=== PATIENT | female | born 1995 | race Caucasian/White ===

== ENCOUNTER 2019-05-22 20:05 | Emergency (ER) | payer OTHER ==
[2019-05-22 20:12] VITALS: BP 130/79
[2019-05-22] MEDS ORDERED: HYDROcod/ACETAM 5/325 MG TABLET PO STA (20:56)
--- NOTE | 2019-05-22 21:00 | ED Physician Documentation ---
History of Present Illness - Stated complaint Stated Complaint: UPPER JAW PX - Chief complaint Chief Complaint: General - History obtained from History obtained from: Patient - History of Present Illness Timing: How many days ago (3-4) Pain level max: 7 Pain level now: 4 - Additonal information Additional information: 23-year-old female presents to the emergency department complaining of bilateral upper dental pain, she thinks that this may be her wisdom teeth. Has not had them removed. No fevers. She feels swelling in the area as well. Tylenol and motrin help. worse with palpation Review of Systems Constitutional: denies: Fever, Chills Throat: denies: Sore throat Cardiac: denies: Chest pain / pressure Respiratory: denies: Cough GI: denies: Vomiting, Diarrhea : denies: Now EGA Skin: denies: Rash Musculoskeletal: denies: Neck pain, Back pain Neurologic: denies: Headache PD PAST MEDICAL HISTORY - Past Medical History Past Medical History: No - Past Surgical History Past Surgical History: No - Present Medications Home Medications: Ambulatory Orders Medication Instructions Recorded Confirmed Hydrocodone/Acetaminophen 1 - 2 each PO Q6H PRN #14 tablet 05/22/19 [Hydrocodon-Acetaminophen 5-325] Ibuprofen [Motrin] 800 mg PO Q8H PRN #30 tablet 05/22/19 - Allergies Allergies/Adverse Reactions: Allergies Allergy/AdvReac Type Severity Reaction Status Date / Time No Known Drug Allergies Allergy Verified 05/22/19 20:11 - Living Situation Living Situation: reports: With family Living Arrangement: reports: At home - Social History Does the pt smoke?: No Does the pt have substance abuse?: No PD ED PE NORMAL - Vitals Vital signs reviewed: Yes - General General: Alert and oriented X 3, No acute distress - HEENT HEENT: Moist mucous membranes - Neck Neck: Supple, no meningeal sign - Cardiac Cardiac: RRR, Strong equal pulses - Respiratory Respiratory: No respiratory distress, Clear bilaterally - Derm Derm: Warm and dry - Neuro Neuro: Alert and oriented X 3 Results - Vitals Vitals: Vital Signs - 24 hr 05/22/19 20:07 Temperature 37 C Heart Rate 91 Respiratory 16 Rate Blood Pressure 130/79 O2 Saturation 100 Oxygen O2 Source Room air PD MEDICAL DECISION MAKING - ED course Complexity details: considered differential, d/w patient ED course: 23-year-old female presents to the emergency department for what appears to be erupting wisdom teeth. Will place on pain medication for home and follow-up with her dentist and an oral surgeon. Patient counseled regarding signs and symptoms for which I believe and urgent re-evaluation would be necessary. Patient with good understanding of and agreement to plan and is comfortable going home at this time This document was made in part using voice recognition software. While efforts are made to proofread this document, sound alike and grammatical errors may occur. Departure - Departure Disposition: 01 Home, Self Care Clinical Impression: Tooth eruption Condition: Good Instructions: Ke[place] Teeth Impacted, Ke[place] Teeth Follow-Up: your,dentist tomorrow [Other] Prescriptions: Hydrocodone/Acetaminophen [Hydrocodon-Acetaminophen 5-325] 1 - 2 each PO Q6H PRN #14 tablet PRN Reason: pain Ibuprofen [Motrin] 800 mg PO Q8H PRN #30 tablet PRN Reason: PAIN &/OR FEVER Comments: Your wisdom teeth appear to be erupting on exam. You need to follow-up with your doctor for further care. Return if you worsen. Follow-up with your dentist as you will need x-rays to determine if this is impacted or not. You may need to see an oral surgeon for removal. Do not drink alcohol or drive while on narcotic pain medicine. Note that many narcotic pain relievers also contain tylenol/acetaminophen. Please ensure that your total dose of acetaminophen from all sources does not exceed 3 grams (3000mg) per day. You may constipated on this medication, take a stool softener such as "Colace" twice a day while you are on it. Also recommend a [id number] laxative such as senna or MiraLAX any day that you do not have a bowel movement. If you received narcotic pain medication in the emergency department, do not drive or operate machinery for the next 24 hours. Discharge Date/Time: 05/22/19 21:15
== END 2019-05-22 21:15 | disposition home or self-care (01) ==
LOC: ED 20:05
DX: K00.6 Disturbances in tooth eruption (principal)
CPT/HCPCS: 99282; 99284; A9270

== ENCOUNTER 2020-06-30 21:21 | Emergency (ER) | payer OTHER ==
[2020-06-30 21:41] VITALS: BP 117/76
[2020-06-30 21:44] LABS: BILIRUBIN,URINE NEGATIVE (NEGATIVE); GLUCOSE, URINE (UA) NEGATIVE (NEGATIVE); KETONES,URINE (UA) NEGATIVE (NEGATIVE); LEUKOCYTE ESTERASE, URINE NEGATIVE (NEGATIVE); NITRITE,URINE NEGATIVE (NEGATIVE); OCCULT BLOOD,URINE LARGE (NEGATIVE); PROTEIN,URINE NEGATIVE (NEGATIVE); UROBILINOGEN,URINE 0.2 (NORMAL) E.U./dL (NORMAL)
[2020-06-30 21:45] LABS: CLARITY,URINE CLEAR (CLEAR)
[2020-06-30 21:46] LABS: HCG UR QUAL NEGATIVE
[2020-06-30 21:53] LABS: BACTERIA,URINE Rare /HPF (None Seen); SQUAMOUS EPITHELIAL CELL,UR FEW Squamous (<= Few)
--- NOTE | 2020-06-30 22:17 | ED Physician Documentation ---
History of Present Illness - Stated complaint Stated Complaint: FEMALE - Chief complaint Chief Complaint: Abd Pain - History obtained from History obtained from: Patient - Additonal information Additional information: Is a 24-year-old female presents with a chief complaint of nausea. She reports she stopped smoking cigarettes 2 days ago and started vaping and she reports occasional nausea without vomiting. Denies headache, neck pain, fevers, chills, shortness of breath, dysuria hematuria flank pain abdominal pain or syncope denies any hearing or vision loss.Patient reports she is allergic to Zofran. She does have a follow-up appointment tomorrow with her PCP. Review of Systems Constitutional: reports: Reviewed and negative Eyes: reports: Reviewed and negative Ears: reports: Reviewed and negative Nose: reports: Reviewed and negative Throat: reports: Reviewed and negative Cardiac: reports: Reviewed and negative Respiratory: reports: Reviewed and negative GI: reports: Nausea : reports: Reviewed and negative Skin: reports: Reviewed and negative Musculoskeletal: reports: Reviewed and negative Neurologic: reports: Reviewed and negative Psychiatric: reports: Reviewed and negative Endocrine: reports: Reviewed and negative Immunocompromised: reports: Reviewed and negative PD PAST MEDICAL HISTORY - Past Medical History Past Medical History: No Cardiovascular: None Respiratory: None Neuro: None Endocrine/Autoimmune: None GI: 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 : None HEENT: None Psych: None Musculoskeletal: None Derm: None - Past Surgical History Past Surgical History: No - Present Medications Home Medications: Ambulatory Orders Medication Instructions Recorded Confirmed Hydrocodone/Acetaminophen 1 - 2 each PO Q6H PRN #14 tablet 05/22/19 [Hydrocodon-Acetaminophen 5-325] Ibuprofen [Motrin] 800 mg PO Q8H PRN #30 tablet 05/22/19 - Allergies Allergies/Adverse Reactions: Allergies Allergy/AdvReac Type Severity Reaction Status Date / Time ondansetron [From Zofran] AdvReac Unknown Verified 06/30/20 21:39 - Social History Does the pt smoke?: No Smoking Status: Never smoker Does the pt drink ETOH?: No Does the pt have substance abuse?: No - Immunizations Immunizations are current?: Yes - POLST Patient has POLST: No PD ED PE NORMAL - Vitals Vital signs reviewed: Yes - General General: Alert and oriented X 3, No acute distress, Well developed/nourished - HEENT HEENT: Atraumatic, PERRL, EOMI, Ears normal, Moist mucous membranes, Pharynx benign, Dentition benign - Neck Neck: Supple, no meningeal sign, No adenopathy, Thyroid normal, No JVD, No bruit - Cardiac Cardiac: RRR, No murmur, No gallop, No rub, Strong equal pulses - Respiratory Respiratory: No respiratory distress, Clear bilaterally - Abdomen Abdomen: Normal bowel sounds, Soft, Non tender, Non distended, No organomegaly - Female Female : Pt declined - Rectal Rectal: Pt declined - Back Back: No CVA TTP, No spinal TTP - Derm Derm: Normal color, Warm and dry, No rash - Extremities Extremities: No deformity, No tenderness to palpate, Normal ROM s pain, No edema, No calf tenderness / cord - Neuro Neuro: Alert and oriented X 3, report clerk 2-12 intact, No motor deficit, No sensory deficit, Normal speech - Psych Psych: Normal mood, Normal affect Results - Vitals Vitals: Vital Signs - 24 hr 06/30/20 21:37 Temperature 36.8 C Heart Rate 76 Respiratory 17 Rate Blood Pressure 117/76 O2 Saturation 98 Oxygen O2 Source Room air - Labs Labs: Laboratory Tests 06/30/20 21:40 Urine Color YELLOW Urine Clarity CLEAR Urine pH 7.0 Ur Specific [place] <=1.005 Urine Protein NEGATIVE Urine Glucose (UA) NEGATIVE Urine Ketones NEGATIVE Urine Occult Blood LARGE H Urine Nitrite NEGATIVE Urine Bilirubin NEGATIVE Urine Urobilinogen 0.2 (NORMAL) Ur Leukocyte Esterase NEGATIVE Urine RBC 11-25 H Urine WBC 0-3 Ur Squamous Epith Cells FEW Squamous Urine Bacteria Rare Ur Microscopic Review INDICATED Urine Culture Comments NOT INDICATED Urine HCG, Qual NEGATIVE PD MEDICAL DECISION MAKING - ED course Complexity details: other ED course: Patient with vague complaints of nausea that has now resolved. Urinalysis is positive for red blood cells with patient reports is currently menstruation.Did offer use of Zofran however the patient states that she is allergic. She is tolerated p.o. challenge in the emergency department she has good follow-up care with her primary care provider this week. Departure - Departure Disposition: 01 Home, Self Care Clinical Impression: Nausea Condition: Stable Instructions: ED Nausea Vomiting Follow-Up: your, doctor [Other] - Tomorrow Comments: please follow up with your primary care provider tomorrow.
== END 2020-06-30 22:33 | disposition home or self-care (01) ==
LOC: ED 21:21
DX: R11.0 Nausea (principal); F17.290 Nicotine dependence, other tobacco product, uncomplicated
CPT/HCPCS: 81001; 81003; 81025; 87086; 99282; 99283

== ENCOUNTER 2020-12-12 13:43 | Emergency (ER) | payer OTHER ==
--- NOTE | 2020-12-12 14:50 | ED Physician Documentation ---
History of Present Illness - Stated complaint Stated Complaint: NAUSEA/FATIGUE - Chief complaint Chief Complaint: Abd Pain - History obtained from History obtained from: Patient - History of Present Illness Timing: Today Pain level max: 0 Pain level now: 0 - Additonal information Additional information: Patient is a 25-year-old female who presents to the emergency department stating that she is concerned about possibly being . She is about 1 week late for her normal menses. She states that she feels like she has breast tenderness and nausea. No fevers. She states she took urine test but that she read that they can be false negatives. She is here requesting a blood test for . No abdominal pain. No fevers. No chills. No vaginal bleeding or discharge Review of Systems Constitutional: denies: Fever, Chills Respiratory: denies: Cough GI: reports: Nausea. 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 : None HEENT: None Psych: None Musculoskeletal: None Derm: None - Past Surgical History Past Surgical History: No - Present Medications Home Medications: Ambulatory Orders Medication Instructions Recorded Confirmed Promethazine [Phenergan] 25 mg PO Q6H PRN #10 tab 12/12/20 - Allergies Allergies/Adverse Reactions: Allergies Allergy/AdvReac Type Severity Reaction Status Date / Time ondansetron [From Zofran] AdvReac Unknown Verified 12/12/20 13:57 - Social History Does the pt smoke?: No Smoking Status: Former smoker Does the pt drink ETOH?: Yes Does the pt have substance abuse?: Yes Substance Use and Type: Marijuana - Immunizations Immunizations are current?: Yes - POLST Patient has POLST: No PD ED PE NORMAL - Vitals Vital signs reviewed: Yes - General General: Alert and oriented X 3, No acute distress - HEENT HEENT: Moist mucous membranes - Neck Neck: Supple, no meningeal sign - Cardiac Cardiac: RRR - Respiratory Respiratory: No respiratory distress, Clear bilaterally - Abdomen Abdomen: Soft - Derm Derm: Warm and dry - Neuro Neuro: Alert and oriented X 3 Results - Vitals Vitals: Vital Signs - 24 hr 12/12/20 13:50 Temperature 37.1 C Heart Rate 70 Respiratory 19 Rate Blood Pressure 129/78 O2 Saturation 100 Oxygen O2 Source Room air - Labs Labs: Laboratory Tests 12/12/20 14:40 HCG, Quant < 0.60 PD MEDICAL DECISION MAKING - ED course Complexity details: reviewed results, re-evaluated patient, considered differential, d/w patient ED course: test is negative. I will prescribe nausea medication for home. Patient is well-appearing, nontoxic. Afebrile. Possible early viral syndrome? Patient declines any further work-up at this time. Patient counseled regarding signs and symptoms for which I believe and urgent re-evaluation would be necessary. Patient with good understanding of and agreement to plan and is comfortable going home at this time This document was made in part using voice recognition software. While efforts are made to proofread this document, sound alike and grammatical errors may occur. Departure - Departure Disposition: 01 Home, Self Care Clinical Impression: Nausea Condition: Good Instructions: ED Nausea Vomiting Follow-Up: your,doctor in 1 week [Other] Prescriptions: Promethazine [Phenergan] 25 mg PO Q6H PRN #10 tab PRN Reason: Nausea / Vomiting Comments: Your test is negative. Follow-up with your doctor for further care. This may be the start of a viral syndrome. You can use the phenergan as needed for nausea and/or vomiting Discharge Date/Time: 12/12/20 15:23
[2020-12-12 15:21] VITALS: BP 129/78
== END 2020-12-12 15:23 | disposition home or self-care (01) ==
LOC: ED 13:43
DX: R11.0 Nausea (principal); R53.83 Other fatigue; Z32.02 Encounter for pregnancy test, result negative; Z87.891 Personal history of nicotine dependence
CPT/HCPCS: 36415; 84702; 99283

== ENCOUNTER 2021-03-16 12:23 | Emergency (ER) | payer OTHER ==
--- NOTE | 2021-03-16 12:59 | ED Physician Documentation ---
PD HPI ABD PAIN - Stated complaint Stated Complaint: ABD PX, VOMITING - Chief complaint Chief Complaint: Abd Pain - History obtained from History obtained from: Patient - Additional information Additional information: 25-year-old woman with history of anorexia, but not bulimia who for the last 6 months has had episodic nausea and vomiting. She states that it is usually associated with her menses and midcycle. Nausea medicine has been helpful. Her periods are regular without out of the ordinary pelvic cramping or bleeding. She is not currently sexually active, she says it has been 6 months or so. She has not had any other work-up done. It is noted that she is a daily marijuana user, but denies relief from heat. 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 : None HEENT: None Psych: None Musculoskeletal: None Derm: None Other Past Medical History: anorexia - Past Surgical History Past Surgical History: No - Present Medications Home Medications: Ambulatory Orders Medication Instructions Recorded Confirmed Promethazine [Phenergan] 25 mg PO Q6H PRN #20 tab 03/16/21 - Allergies Allergies/Adverse Reactions: Allergies Allergy/AdvReac Type Severity Reaction Status Date / Time ondansetron [From Zofran] AdvReac Nausea Verified 03/16/21 12:26 - Social History Does the pt smoke?: No Smoking Status: Former smoker Does the pt drink ETOH?: Yes Does the pt have substance abuse?: Yes Substance Use and Type: Marijuana - Immunizations Immunizations are current?: Yes - POLST Patient has POLST: No PD ED PE NORMAL - Vitals Vital signs reviewed: Yes - General General: Alert and oriented X 3, No acute distress - Cardiac Cardiac: RRR, No murmur - Respiratory Respiratory: No respiratory distress, Clear bilaterally - Abdomen Abdomen: Normal bowel sounds, Soft, Non tender - Back Back: No CVA TTP, No spinal TTP - Derm Derm: Normal color, Warm and dry - Extremities Extremities: No edema, No calf tenderness / cord - Neuro Neuro: Alert and oriented X 3, Normal speech Results - Vitals Vitals: Vital Signs - 24 hr 03/16/21 03/16/21 03/16/21 12:26 13:19 15:06 Temperature 36.8 C Heart Rate 74 69 94 Respiratory 18 16 16 Rate Blood Pressure 133/73 H 105/70 103/72 O2 Saturation 100 100 100 Oxygen O2 Source Room air - Labs Labs: Laboratory Tests 03/16/21 03/16/21 03/16/21 12:54 12:54 13:25 WBC 4.4 L RBC 4.00 L Hgb 13.0 Hct 38.3 MCV 95.8 MCH 32.5 H MCHC 33.9 RDW 11.7 L Plt Count 230 MPV 9.8 Neut # (Auto) 2.9 Lymph # (Auto) 1.0 L [place] # (Auto) 0.3 Eos # (Auto) 0.0 Baso # (Auto) 0.1 Absolute Nucleated RBC 0.00 Nucleated RBC % 0.0 Sodium 139 Potassium 3.7 Chloride 105 Carbon Dioxide 26 Anion Gap 8.0 BUN 16 Creatinine 0.8 Estimated GFR (MDRD) 86 L Glucose 107 H Calcium 9.3 Total Bilirubin 0.4 AST 41 ALT 38 Alkaline Phosphatase 53 Total Protein 7.5 Albumin 4.5 Globulin 3.0 Albumin/Globulin Ratio 1.5 Lipase 22 Urine Color YELLOW Urine Clarity HAZY Urine pH 7.5 Ur Specific [place] 1.015 Urine Protein NEGATIVE Urine Glucose (UA) NEGATIVE Urine Ketones NEGATIVE Urine Occult Blood LARGE H Urine Nitrite NEGATIVE Urine Bilirubin NEGATIVE Urine Urobilinogen 0.2 (NORMAL) Ur Leukocyte Esterase NEGATIVE Urine RBC 11-25 H Urine WBC 0-3 Ur Squamous Epith Cells RARE Squamous Amorphous Sediment Few Urine Bacteria Rare Ur Microscopic Review INDICATED Urine Culture Comments NOT INDICATED Urine HCG, Qual NEGATIVE PD MEDICAL DECISION MAKING - ED course ED course: This young lady has recurrent abdominal pain and nausea. The nausea is worse than the pain. It seems to be midcycle and during her menses. She is a daily marijuana user but the lack of overt anxiety and relief from heat would suggest against cannabinoid hyperemesis although a trial of cessation was discussed and recommended. Other than that her work-up in the ED was negative and there does not seem to be an emergency medical condition present. Encouraged follow-up with GI. She's had luck with Phenergan in the past and this is prescribed. Departure - Departure Disposition: 01 Home, Self Care Clinical Impression: Abdominal pain Qualifiers: Abdominal location: unspecified location Qualified Code(s): R10.9 - Unspecified abdominal pain Vomiting Qualifiers: Vomiting type: unspecified Vomiting Intractability: non-intractable Nausea presence: with nausea Qualified Code(s): R11.2 - Nausea with vomiting, unspecified Condition: Good Record reviewed to determine appropriate education?: Yes Instructions: ED Nausea Vomiting Prescriptions: Promethazine [Phenergan] 25 mg PO Q6H PRN #20 tab PRN Reason: Nausea / Vomiting Comments: As discussed, your labs were normal with today with the exception of some blood in your urine, presumed due to active menses. CT of your belly was normal. 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 Also trial cessation of marijuana although, your particular pattern is not particularly consistent with "cannabinoid hyperemesis syndrome". Closest GI office is in [facility], call [phone] for appt. Discharge Date/Time: 03/16/21 15:16
[2021-03-16 13:01] LABS: BASOPHILS # (AUTO) 0.1 10^3/uL (0.0-0.1); BASOPHILS % (AUTO) 1.1 %; EOSINOPHILS % (AUTO) 0.7 %; HCT - HEMATOCRIT 38.3 % (37.0-47.0); MEAN CORPUSCULAR HEMOGLOBIN 32.5 pg (27.0-31.0); MEAN CORPUSCULAR HGB CONC 33.9 g/dL (32.0-36.0); MEAN CORPUSCULAR VOLUME 95.8 fL (81.0-99.0); MEAN PLATELET VOLUME 9.8 fL (7.9-10.8); MONOCYTES # (AUTO) 0.3 10^3/uL (0.0-1.0); MONOCYTES % (AUTO) 7.6 %; NEUTROPHILS # (AUTO) 2.9 10^3/uL (1.5-6.6); NEUTROPHILS % (AUTO) 67.4 %; PLT - PLATELET COUNT 230 10^3/uL (130-450); RED CELL DISTRIBUTION WIDTH 11.7 % (12.0-15.0); WHITE BLOOD COUNT 4.4 x10^3/uL (4.8-10.8)
[2021-03-16 13:12] LABS: ALBUMIN 4.5 g/dL (3.2-5.5); ALBUMIN/GLOBULIN RATIO 1.5 (1.0-2.2); BILIRUBIN,TOTAL 0.4 mg/dL (0.2-1.0); CALCIUM 9.3 mg/dL (8.5-10.3); CREATININE 0.8 mg/dL (0.4-1.0); POTASSIUM 3.7 mmol/L (3.5-5.0); TOTAL PROTEIN 7.5 g/dL (6.7-8.2)
[2021-03-16 13:51] LABS: BILIRUBIN,URINE NEGATIVE (NEGATIVE); CLARITY,URINE HAZY (CLEAR); GLUCOSE, URINE (UA) NEGATIVE (NEGATIVE); KETONES,URINE (UA) NEGATIVE (NEGATIVE); LEUKOCYTE ESTERASE, URINE NEGATIVE (NEGATIVE); NITRITE,URINE NEGATIVE (NEGATIVE); OCCULT BLOOD,URINE LARGE (NEGATIVE); PH,URINE 7.5 PH (5.0-7.5); PROTEIN,URINE NEGATIVE (NEGATIVE); UROBILINOGEN,URINE 0.2 (NORMAL) E.U./dL (NORMAL)
[2021-03-16 13:52] LABS: HCG UR QUAL NEGATIVE
[2021-03-16 13:58] LABS: AMORPHOUS SEDIMENT,UR Few /LPF; BACTERIA,URINE Rare /HPF (None Seen); SQUAMOUS EPITHELIAL CELL,UR RARE Squamous (<= Few); WBC,URINE 0-3 /HPF (0-5)
--- NOTE | 2021-03-16 14:35 | CT Report ---
PROCEDURE: Abdomen/Pelvis W INDICATIONS: Acute on chronic emesis CONTRAST: IV CONTRAST: Isovue 300 ml: 100 PO CONTRAST: *NO PO CONTRAST TECHNIQUE: After the administration of intravenous contrast, 5 mm thick sections acquired from the diaphragms to the symphysis. 5 mm thick coronal and sagittal reformats were acquired. For radiation dose reducti on, the following was used: automated exposure control, adjustment of mA and/or kV according to franco ent size. COMPARISON: None. FINDINGS: Image quality: Excellent. ABDOMEN: Lung bases: Lung bases are clear. Heart size is normal. Solid organs: Liver and spleen are normal in size and enhancement. Gallbladder is normal. Biliary system is non dilated. Pancreas enhances normally. No adrenal nodules. Kidneys demonstrate normal size and enhancement, without hydronephrosis. Peritoneum and bowel: Bowel loops demonstrate normal wall thickness and caliber. No free fluid or a ir. Nodes and vessels: No retroperitoneal or mesenteric adenopathy by size criteria. Aorta and inferior vena cava are normal in size. Miscellaneous: No ventral hernias. PELVIS: Genitourinary: Bladder wall thickness is normal. Small volume free pelvic fluid within physiologic normal limits. Uterus and adnexa are unremarkable. Miscellaneous: No inguinal hernias or adenopathy. Bones: No suspicious bony lesions. No vertebral body compression fractures. IMPRESSION: Normal study. Reviewed by: Isiah Angelo MD on 03/16/2021 2:34 PM PDT Approved by: Isiah Angelo MD on 03/16/2021 2:34 PM PDT Station ID: [id number]
[2021-03-16 15:07] VITALS: BP 103/72
[2021-03-16] MEDS ORDERED: IOPAMIDOL-300 100 ML VIAL IVP ONE (18:40)
== END 2021-03-16 15:16 | disposition home or self-care (01) ==
LOC: ED 12:23
DX: R10.9 Unspecified abdominal pain (principal); R11.2 Nausea with vomiting, unspecified; F12.90 Cannabis use, unspecified, uncomplicated; Z87.891 Personal history of nicotine dependence
CPT/HCPCS: 36415; 74177; 80053; 81001; 81025; 83690; 85025; 99283; 99284; Q9967; 81003; 87086

== ENCOUNTER 2023-05-10 12:41 | Emergency (ER) | payer OTHER ==
[2023-05-10 12:51] VITALS: BP 122/71
[2023-05-10 13:17] LABS: RAPID STREP SCREEN POSITIVE (Negative)
--- NOTE | 2023-05-10 13:23 | ED Physician Documentation ---
PD HPI HEENT - Stated complaint Stated Complaint: SORE THROAT, SWELLING - Chief complaint Chief Complaint: Heent - History obtained from History obtained from: Patient - Additional information Additional information: Patient is a 27-year-old female presenting for evaluation of a sore throat that she woke up with this morning along with noting white spots on her tonsils. Her daughter recently had URI symptoms but has since improved. Patient denies fever, difficulty with swallowing, abnormal speech. She has not taken Motrin or Tylenol this morning. Denies cough, congestion or other associated symptoms.Has had 1 prior episode of strep in the past. 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 : None HEENT: None Psych: None Musculoskeletal: None Derm: None - Past Surgical History Past Surgical History: No - Present Medications Home Medications: Ambulatory Orders Medication Instructions Recorded Confirmed Promethazine [Phenergan] 25 mg PO Q6H PRN #20 tab 03/16/21 Amoxicillin 500 mg PO BID 10 Days #20 cap 05/10/23 - Allergies Allergies/Adverse Reactions: Allergies Allergy/AdvReac Type Severity Reaction Status Date / Time ondansetron [From Zofran] AdvReac Nausea Verified 05/10/23 12:51 - Social History Does the pt smoke?: No Smoking Status: Former smoker Does the pt drink ETOH?: Yes Does the pt have substance abuse?: Yes - Immunizations Immunizations are current?: Yes - POLST Patient has POLST: No PD ED PE NORMAL - General General: Alert and oriented X 3, No acute distress, Well developed/nourished - HEENT HEENT: Atraumatic, Moist mucous membranes, Other (No significant tonsillar exudate or swelling, no signs of peritonsillar abscess, uvula is midline) - Neck Neck: Supple, no meningeal sign - Cardiac Cardiac: RRR - Respiratory Respiratory: No respiratory distress, Clear bilaterally - Derm Derm: Warm and dry - Neuro Neuro: Normal speech Results - Vitals Vitals: Vital Signs - 24 hr 05/10/23 12:48 Temperature 36.7 C Heart Rate 107 H Respiratory 16 Rate Blood Pressure 122/71 O2 Saturation 98 Oxygen O2 Source Room air - Labs Labs: Laboratory Tests 05/10/23 12:55 Group A Strep Rapid POSITIVE H PD Medical Decision Making - ED course Complexity details: reviewed results, re-evaluated patient, d/w patient ED course: Patient presenting for evaluation of sore throat x1 day. Vital signs are stable.Patient has no signs of airway compromise or peritonsillar abscess. Rapid strep is positive. Patient started on amoxicillin. Counseled regarding treatment plan and concerning symptoms to return for. Departure - Departure Disposition: 01 Home, Self Care Clinical Impression: Strep pharyngitis Condition: Stable Instructions: ED Strep Pharyngitis Conf Prescriptions: Amoxicillin 500 mg PO BID 10 Days #20 cap Comments: You have tested positive for strep today.I am starting you on an antibiotic and have sent this prescription to [facility] in [place]. Please make sure you complete the whole course of the antibiotic. Continue with ibuprofen or acetaminophen as needed for any discomfort. Please make sure you are staying hydrated. If you develop worsening symptoms such as difficulty with swallowing, trouble breathing or any new concerns please return to the emergency department. Discharge Date/Time: 05/10/23 13:40
== END 2023-05-10 13:40 | disposition home or self-care (01) ==
LOC: ED 12:41
DX: J02.0 Streptococcal pharyngitis (principal); Z87.891 Personal history of nicotine dependence
CPT/HCPCS: 87430; 99283